=== PATIENT | female | born 1985 | race African-American/Black ===

== ENCOUNTER 2016-06-02 11:31 | Emergency (ER) | payer BC ==
[2016-06-02 11:41] VITALS: BP 161/106; BMI 39.4
--- NOTE | 2016-06-02 11:55 | DR.GENAD ---
HPI - PCP Primary Care Physician: CARLIE - HPI Comment HPI Comment: NO DRAINAGE.NO FEVER. SHE IS HAVING RT KNEE PAIN ALSO. - Complaint/Symptoms Chief Complaint Doctors Comments: PATIENT HAVE PILONIDAL CYST THAT IS INFLAME. RT KNEE PAIN. Chief Complaint:: PT. C/O RIGHT KNEE PAIN, TAILBONE PAIN WHICH WORSENS WHEN PT. TRIES TO SIT DOWN AND A POSSIBLE SEBACEOUS CYST TO COCCYX AREA. PT. HAS A HISTORY OF CYST REMOVAL TO SAME AREA. - Nurses notes reviewed Nurses Notes Review: Yes - Source History Provided: Patient - Mode of Arrival Mode of Arrival: Ambulatory - Timing Onset of Chief Complaint: 06/01/16 Came on: Suddenly - Duration Duration: Constant Duration: Days - Severity Severity: Moderate PMH - PMH Past Medical History: Yes Past Medical History: Hypertension Past Surgical History: Yes Surgical History: Other Past Surgical History Comment: SEBACEOUS CYST REMOVAL - Family History History of Family Medical Conditions: Yes Family Medical History: Diabetes Mellitus, Hypertension - Social History Does patient currently use any type of tobacco product: No Have you used tobacco products in the last 12 months: No Type of Tobacco Use: None Does any household member use tobacco: No Alcohol Use: None Do you use any recreational Drugs:: No Lives With: Family Lives Where: Home - infectious screening In the last 2 months have you had wt loss of >10#?: NO Have you had fever, night sweats or hemotysis?: No Have you traveled outside the country in the last 6 months?: No Isolation: Standard ROS - Review of Systems Constitutional: No Symptoms Reported Eyes: No Symptoms Reported ENTM: No Symptoms Reported Respiratoy: No Symptoms Reported Cardiovascular: No Symptoms Reported Gastrointestinal/Abdominal: No Symptoms Reported Genitourinary: No Symptoms Reported Neurological: No Symptoms Reported Musculoskeletal: Back Pain, Muscle Pain, Right, Back, Knee Integumentary: No Symptoms Reported Hematologic/Lymphatic: No Symptoms Reported Endocrine: No Symptoms Reported All Other Systems: Reviewed and Negative PE - Vital Signs Vitals: Temperature 98.0 F Pulse Rate 97 Respiratory Rate 17 Blood Pressure [Right Arm] 142/87 Blood Pressure [Left Arm] 152/109 Blood Pressure 161/106 O2 Sat by Pulse Oximetry 97 - General Limitations: No Limitations General Appearance: Alert - Head Head Exam: Normal Inspection - Eyes Eye exam: Normal Appearance - ENT ENT Exam: Normal External Ear Exam External Ear Exam: Normal External Inspection Nose Exam: Normal Nose Exam Mouth Exam: Normal Inspection Throat Exam: Normal Inspection - Neck Neck Exam: Trachea Midline - Chest Chest Inspection: Symmetric Chest Wall Rise - Respiratory Respiratory Exam: Normal Lung Sounds Bilat Respiratory Exam: Bilateral Clear to Auscultation - Cardiovascular Cardiovascular Exam: Regular Rate, Normal Rhythm, Normal Heart Sounds - Abdominal Exam Abdominal Exam: Normal Bowel Sounds, Soft. negative: Tenderness - Extremities Extremities Exam: Joint Swelling (RT KNEE) - Back Back Exam: Normal Inspection - Neurologic Neurological Exam: Alert, Oriented X3 - Psychiatric Psychiatric Exam: Normal Affect, Normal Mood - Skin Skin Exam: Normal Color MDM - Differential Diagnosis Differential Diagnosis: PILONIDAL CYST, ROGHT KNEE PAIN Course - Education/Counseling Education/Counseling: Patient, Education Educated On: Diagnosis, Needs for Follow Up - Diagnosis Discharge Problem: Pilonidal cyst Right knee pain Qualifiers: Chronicity: acute Qualified Code(s): M25.561 - Pain in right knee - Discharge Plan Disposition: 01 HOME, SELF-CARE Condition: Stable Prescriptions: Clindamycin HCl 300 mg PO Q6H #28 cap Ibuprofen [MOTRIN TAB 600 MG *] 600 mg PO TID PRN #20 tab PRN Reason: Pain/Inflammation Tramadol HCl 50 mg PO Q8H PRN #15 tab PRN Reason: Pain - Follow ups/Referrals Follow ups/Referrals: WILFRIDO SEXTON [Primary Care Provider] - 3 days - Instructions Instructions: Incision and Drainage of a Pilonidal Cyst, Folliculitis, Knee Pain Additional Instructions: RETURN TO ED IF WORSE.
--- NOTE | 2016-06-02 12:35 | RAD ---
Three views of the right knee Indication: Knee pain Findings: There is mild medial femorotibial compartment degenerative change. No suprapatellar joint effusion. No fracture dislocation. No localizing soft tissue swelling. Impression: Very mild medial femorotibial compartment osteoarthrosis. No fracture, dislocation or jaimes prapatellar joint effusion. Reported By:
== END 2016-06-02 12:54 | disposition home or self-care (01) ==
LOC: ER 11:36
DX: L05.91 Pilonidal cyst without abscess (principal); M25.561 Pain in right knee
CPT/HCPCS: 73564; 99282

== ENCOUNTER 2016-06-07 06:41 | Emergency (ER) | payer BC ==
[2016-06-07 06:49] VITALS: BP 149/103; BMI 37.4
--- NOTE | 2016-06-07 07:14 | DR.GENAD ---
HPI - PCP Primary Care Physician: sexton - Complaint/Symptoms Chief Complaint:: patient seen dr aguilar vaishali for the cyst on her buttocks and was given meds. dr seth vee cut the cyst and referred her to dr thompson but has not heard from him yet. - Nurses notes reviewed Nurses Notes Review: Yes - Source History Provided: Patient - Mode of Arrival Mode of Arrival: Ambulatory - Timing Onset of Chief Complaint: 06/02/16 Came on: Gradually - Duration Duration: Constant Duration: Weeks - Location Location: buttock - Severity Severity: Moderate - Modifying Factors Worsens:: pressure - Associated Signs and Symptoms Associated Signs and Symptoms: pain - Other History Other History: cyst opened in past but returned PMH - PMH Past Medical History: Yes Past Medical History: Hypertension Past Surgical History: Yes Surgical History: Other - Family History History of Family Medical Conditions: Yes Family Medical History: Diabetes Mellitus, Hypertension - Social History Does patient currently use any type of tobacco product: No Have you used tobacco products in the last 12 months: No Type of Tobacco Use: None Does any household member use tobacco: No Alcohol Use: None Do you use any recreational Drugs:: No Lives With: Family Lives Where: Home - infectious screening In the last 2 months have you had wt loss of >10#?: NO Have you had fever, night sweats or hemotysis?: No Have you traveled outside the country in the last 6 months?: No Isolation: Standard ROS - Review of Systems Constitutional: No Symptoms Reported Eyes: No Symptoms Reported ENTM: No Symptoms Reported Respiratoy: No Symptoms Reported Cardiovascular: No Symptoms Reported Gastrointestinal/Abdominal: No Symptoms Reported Genitourinary: No Symptoms Reported Neurological: No Symptoms Reported Musculoskeletal: No Symptoms Reported Integumentary: Wound (glueal cleft cyst with small incision,) Hematologic/Lymphatic: No Symptoms Reported Endocrine: No Symptoms Reported PE - Vital Signs Vitals: Temperature 97.8 F Pulse Rate 111 Respiratory Rate 16 Blood Pressure [Right Arm] 142/87 Blood Pressure [Left Arm] 152/109 Blood Pressure 149/103 O2 Sat by Pulse Oximetry 100 - General Limitations: No Limitations General Appearance: Alert, In No Apparent Distress - Head Head Exam: Normal Inspection - Eyes Eye exam: Normal Appearance, EOMI. negative: Scleral Icterus, Conjunctival Injection - ENT ENT Exam: Normal Exam, Normal Oropharynx Nose Exam: Normal Nose Exam Mouth Exam: Normal Inspection - Neck Neck Exam: Normal Inspection, Full ROM, Trachea Midline - Chest Chest Inspection: Normal Inspection - Respiratory Respiratory Exam: Normal Lung Sounds Bilat. negative: Accessory Muscle Use, Respiratory Distress - Extremities Extremities Exam: Normal Inspection, Full ROM - Back Back Exam: Normal Inspection - Neurologic Neurological Exam: Alert, Oriented X3, CN II-XII Intact - Psychiatric Psychiatric Exam: Normal Mood - Skin Skin Exam: negative: Intact, Normal Color (gluteal cleft cut cyst, tenderness mild erythema) - Diagnosis Discharge Problem: Cyst - Discharge Plan Condition: Stable - Follow ups/Referrals Follow ups/Referrals: WILFRIDO SEXTON [Primary Care Provider] - 3 days - Instructions
== END 2016-06-07 07:29 | disposition home or self-care (01) ==
LOC: ER 06:53
DX: L02.31 Cutaneous abscess of buttock (principal)
CPT/HCPCS: 99281; 99282